=== PATIENT | male | born 1960 | race Caucasian/White ===

== ENCOUNTER 2019-02-13 02:13 | Emergency (ER) | payer BC ==
--- NOTE | 2019-02-13 02:14 | ED Physician Documentation ---
PD HPI CHEST PAIN - Stated complaint Stated Complaint: CHEST TIGHTNESS - History obtained from History obtained from: Patient - History of Present Illness Timing - onset: How many hours ago (2-3 hours) Timing - onset during: Rest Timing - details: Gradual onset, Waxing and waning Pain level max: 4 Pain level now: 0 Quality: Pressure Location: Substernal Radiation: Other (no radiation) Improved by: Nothing Worsened by: Inspiration Associated symptoms: No: Shortness of air, Diaphoresis, Nausea, Vomiting, Feeling faint / dizzy, General Weakness, Palpitations, Cough Similar symptoms before: Has not had sx before Recently seen: Not recently seen - Additional information Additional information: c/o low midline chest pressure, waxing and waning over past few hours; this kept him from sleeping and he became increasingly concerned when it wouldn't subside. He says he has been feeling fatigued and generalized muscle aches x 2-3 days Review of Systems Constitutional: reports: Myalgias, Fatigue, Reviewed and negative. denies: Fever, Chills, Sweats Cardiac: reports: Chest pain / pressure. denies: Palpitations, Pedal edema, Calf pain Respiratory: reports: Reviewed and negative GI: reports: Reviewed and negative Musculoskeletal: reports: Reviewed and negative PD PAST MEDICAL HISTORY - Past Medical History Past Medical History: Yes Other Past Medical History: "mixed connective tissue disorder" - Allergies Allergies/Adverse Reactions: Allergies Allergy/AdvReac Type Severity Reaction Status Date / Time No Known Drug Allergies Allergy Verified 02/13/19 02:22 - Living Situation Living Arrangement: reports: At home PD ED PE NORMAL - Vitals Vital signs reviewed: Yes - General General: Alert and oriented X 3, No acute distress, Well developed/nourished - HEENT HEENT: Moist mucous membranes - Neck Neck: Supple, no meningeal sign - Cardiac Cardiac: RRR, No murmur, No gallop, No rub - Respiratory Respiratory: No respiratory distress, Clear bilaterally - Abdomen Abdomen: Soft, Non tender - Derm Derm: Normal color, Warm and dry - Extremities Extremities: No edema Results - Vitals Vitals: Vital Signs - 24 hr 02/13/19 02/13/19 02/13/19 02:19 02:23 02:33 Temperature 36.4 C L Heart Rate 70 67 61 Respiratory 17 17 16 Rate Blood Pressure 141/88 H 123/87 H O2 Saturation 98 98 98 02/13/19 02/13/19 02/13/19 02:44 03:30 03:57 Temperature Heart Rate 60 59 L 56 L Respiratory 15 17 17 Rate Blood Pressure 127/84 H 120/80 120/72 O2 Saturation 96 98 98 02/13/19 04:15 Temperature Heart Rate 60 Respiratory 16 Rate Blood Pressure O2 Saturation 98 Oxygen O2 Source Room air - EKG (time done) No standard instances Rate: Rate (enter#) (64) Rhythm: NSR [place]: Normal Intervals: Normal [place] QRS: Normal Ischemia: Normal ST segments - Labs Labs: Laboratory Tests 02/13/19 02/13/19 02/13/19 02:30 02:30 02:30 WBC 6.3 RBC 4.45 L Hgb 13.4 L Hct 39.1 L MCV 87.9 MCH 30.1 MCHC 34.3 RDW 12.7 Plt Count 205 MPV 8.8 Neut # (Auto) 2.5 Lymph # (Auto) 2.8 [place] # (Auto) 0.6 Eos # (Auto) 0.3 Baso # (Auto) 0.1 Absolute Nucleated RBC 0.00 Nucleated RBC % 0.0 PT 12.1 INR 1.1 APTT 30.6 D-Dimer Sodium 139 Potassium 4.2 Chloride 101 Carbon Dioxide 25 Anion Gap 13.0 BUN 16 Creatinine 0.9 Estimated GFR (MDRD) 87 L Glucose 101 H Calcium 10.2 Total Bilirubin 0.6 AST 29 ALT 21 Alkaline Phosphatase 51 Total Creatine Kinase 149 CK-MB (CK-2) Troponin I Total Protein 7.3 Albumin 4.2 Globulin 3.1 Albumin/Globulin Ratio 1.4 Lipase 41 02/13/19 02/13/19 02:30 02:30 WBC RBC Hgb Hct MCV MCH MCHC RDW Plt Count MPV Neut # (Auto) Lymph # (Auto) [place] # (Auto) Eos # (Auto) Baso # (Auto) Absolute Nucleated RBC Nucleated RBC % PT INR APTT D-Dimer < 200.0 L Sodium Potassium Chloride Carbon Dioxide Anion Gap BUN Creatinine Estimated GFR (MDRD) Glucose Calcium Total Bilirubin AST ALT Alkaline Phosphatase Total Creatine Kinase CK-MB (CK-2) 1.8 Troponin I < 0.04 Total Protein Albumin Globulin Albumin/Globulin Ratio Lipase - Rads (name of study) chest xray Radiology: Prelim report reviewed, See rad report PD MEDICAL DECISION MAKING - ED course Complexity details: reviewed results, re-evaluated patient, considered differential, d/w patient Departure - Departure Disposition: 01 Home, Self Care Clinical Impression: Chest pain Qualifiers: Chest pain type: unspecified Qualified Code(s): R07.9 - Chest pain, unspecified Condition: Good Health Concerns: chest pain Plan of Treatment: return if worse, follow up with primary care physician Assessment: see diagnosis Instructions: ED Chest Pain Atypical Unkn Cause Follow-Up: Randy Goldsetin MD [Primary Care Provider] - Discharge Date/Time: 02/13/19 04:15
[2019-02-13 02:36] LABS: BASOPHILS # (AUTO) 0.1 10^3/uL (0.0-0.1); EOSINOPHILS # (AUTO) 0.3 10^3/uL (0.0-0.7); EOSINOPHILS % (AUTO) 4.9 %; HGB - HEMOGLOBIN 13.4 g/dL (14.0-18.0); LYMPHOCYTES # (AUTO) 2.8 10^3/uL (1.5-3.5); MEAN CORPUSCULAR HEMOGLOBIN 30.1 pg (27.0-31.0); MEAN CORPUSCULAR HGB CONC 34.3 g/dL (32.0-36.0); MEAN CORPUSCULAR VOLUME 87.9 fL (80.0-94.0); MEAN PLATELET VOLUME 8.8 fL (7.4-11.4); MONOCYTES # (AUTO) 0.6 10^3/uL (0.0-1.0); MONOCYTES % (AUTO) 8.8 %; NEUTROPHILS # (AUTO) 2.5 10^3/uL (1.5-6.6); PLT - PLATELET COUNT 205 10^3/uL (130-450); RED BLOOD COUNT 4.45 10^6/uL (4.70-6.10); RED CELL DISTRIBUTION WIDTH 12.7 % (12.0-15.0); WHITE BLOOD COUNT 6.3 x10^3/uL (4.8-10.8)
[2019-02-13 02:46] LABS: INR 1.1 (0.8-1.2); PT - PROTHROMBIN TIME 12.1 secs (9.9-12.6)
[2019-02-13 02:50] LABS: ALBUMIN 4.2 g/dL (3.2-5.5); ALBUMIN/GLOBULIN RATIO 1.4 (1.0-2.2); BILIRUBIN,TOTAL 0.6 mg/dL (0.2-1.0); CALCIUM 10.2 mg/dL (8.5-10.3); CREATININE 0.9 mg/dL (0.6-1.2); TOTAL PROTEIN 7.3 g/dL (6.7-8.2)
[2019-02-13 02:53] LABS: PARTIAL THROMBOPLASTIN TIME 30.6 secs (24.9-33.3); TROPONIN I < 0.04 ng/mL (<0.49)
[2019-02-13 02:56] LABS: CREATINE KINASE MB 1.8 ng/mL (0.6-6.3)
--- NOTE | 2019-02-13 03:09 | XRAY Report ---
Reason: chest pain Procedure Date: 02/13/2019 Accession Number: [id number] / [id number] Procedure: XR - Chest 2 View X-Ray CPT Code: 46941 FULL RESULT: EXAM: CHEST RADIOGRAPHY EXAM DATE: 02/13/2019 02:43 AM. CLINICAL HISTORY: Chest pain. COMPARISON: None. TECHNIQUE: 2 views. FINDINGS: Lungs/Pleura: No alveolar consolidation or pleural effusion seen. No pneumothorax. Mediastinum: Heart and mediastinal contours are unremarkable. Other: None. IMPRESSION: 1. No acute abnormality seen in the chest. [facility]
[2019-02-13 03:58] VITALS: BP 120/72
== END 2019-02-13 04:15 | disposition home or self-care (01) ==
LOC: ED 02:13
DX: R07.9 Chest pain, unspecified (principal)
CPT/HCPCS: 36415; 71046; 80053; 82550; 82553; 83690; 84484; 85025; 85379; 85610; 85730; 93005; 99283; 99284